=== PATIENT | female | born 2000 | race Two or more races ===

== ENCOUNTER 2024-03-26 10:00 | Emergency (ER) | payer OTHER ==
[~2024-03-26] VITALS: Ht 149.9 cm; Wt 59.0 kg
[2024-03-26 11:10] VITALS: BP 130/85
[2024-03-26] MEDS ORDERED: DEXAMETHASONE SODIUM PHOSPHATE 4 MG/ML VIAL IM ONE (11:15)
[2024-03-26] MEDS ORDERED: GUAIFENESIN/DEXTROMETHORPHAN 10ML BLIST.PACK PO ONE (11:15)
[2024-03-26 12:30] LABS: HEMATOCRIT 45.1 % (36.0-45.00); HEMOGLOBIN 15.9 g/dL (12.0-15.00); MEAN CORPUSCULAR HEMOGLOBIN 31.7 pg (27.00-32.0); MEAN CORPUSCULAR HGB CONC 35.2 g/dl (32.0-36.0); PLATELET COUNT 208 K/uL (150-450); RED BLOOD COUNT 5.01 M/uL (4.00-6.00); RED CELL DISTRIBUTION WIDTH 12.8 % (11.5-14.5)
[2024-03-26] MEDS ORDERED: TUSNEL LIQUID178 ML PO (13:12)
[2024-03-26] MEDS ORDERED: OSEL75CA PO (13:12)
[2024-03-26 13:40] VITALS: O2SAT 98
== END 2024-03-26 13:41 | disposition home or self-care (01) ==
LOC: ER 10:02
PROVIDERS: General Practice
DX: J10.1 Influenza due to other identified influenza virus with other respiratory manifestations (principal)